=== PATIENT | male | born 1950 | race Caucasian/White ===

== ENCOUNTER 2018-01-29 12:21 | Outpatient (CLI) ==
--- NOTE | 2018-01-29 13:53 | DI ---
EXAM: Chest two view, frontal and lateral views. HISTORY: Pulmonary fibrosis. COMPARISON: None available. FINDINGS: Heart size is normal. There is no vascular congestion. There are reticular opacities in both lung bases, slightly greater on the left. No consolidation, pleural effusion or pneumothorax id entified. Osseous structures are intact. IMPRESSION: Bibasilar reticular opacities which are consistent with the stated history of pulmonary fibrosis.
== END 2018-01-29 12:22 | disposition home or self-care (01) ==
LOC: RAD 12:21
PROVIDERS: ATTEND Family Medicine
DX: J84.10 Pulmonary fibrosis, unspecified (principal); R05 Cough; Z57.9 Occupational exposure to unspecified risk factor